=== PATIENT | female | born 1995 | race Caucasian/White ===

== ENCOUNTER 2022-02-13 10:57 | Emergency (ER) | payer OTHER ==
[2022-02-13 11:04] VITALS: BP 180/90
--- NOTE | 2022-02-13 11:54 | ED Physician Documentation ---
History of Present Illness - Stated complaint Stated Complaint: STITCH REMOVAL - Chief complaint Chief Complaint: Laceration - Additonal information Additional information: 26-year-old female presents emergency department to have the 4 sutures taken out of her left thumb. Wound occurred 14 days ago after using a juke box mechanic. Review of Systems Constitutional: reports: Reviewed and negative Cardiac: reports: Reviewed and negative Respiratory: reports: Reviewed and negative Skin: reports: Laceration (s) PD PAST MEDICAL HISTORY - Past Surgical History Past Surgical History: No - Present Medications Home Medications: Ambulatory Orders Medication Instructions Recorded Confirmed No Known Home Medications 01/30/22 02/13/22 - Allergies Allergies/Adverse Reactions: Allergies Allergy/AdvReac Type Severity Reaction Status Date / Time No Known Drug Allergies Allergy Verified 01/30/22 19:10 - Social History Does the pt have substance abuse?: No - Immunizations Immunizations are current?: No Immunizations: TDAP >10years/unknown PD ED PE EXPANDED - Extremities Extremities: Left finger(s) ([address] on the dorsum of the left thumb just distal to the MCP joint. Wound is well approximated. No drainage. No tenderness elicited. Normal flexion extension at MCP. Mild surrounding erythema.) Results - Vitals Vitals: Vital Signs - 24 hr 02/13/22 11:02 Temperature 37.1 C Heart Rate 78 Respiratory 17 Rate Blood Pressure 180/90 H O2 Saturation 99 Oxygen O2 Source Room air PD MEDICAL DECISION MAKING - ED course Complexity details: d/w patient ED course: 26-year-old female presents emergency department to have 4 sutures taken out of the dorsum of her left thumb sustained after cutting her self with a juke box mechanic 14 days ago. The wound itself appears well-healed with good wound approximation no pain and no drainage. There is moderate amount of erythema surrounding the wound which I believe at this time to be inflammation secondary to suture as opposed to infection. Sutures were removed. There did not appear to be any dehiscence. Routine care and emergent return precautions otherwise discussed Departure - Departure Disposition: 01 Home, Self Care Clinical Impression: Visit for suture removal Condition: Stable Record reviewed to determine appropriate education?: Yes Comments: Deborah the 4 sutures were taken out of the laceration of your left thumb. The wound appears to have healed well. The redness I suspect is inflammation just because the stitches act like a foreign body. I recommend you place a thin layer of any antibiotic ointment such as Neosporin over the wound as well as a bandage. Over the next week or so I would expect the redness to be improving. If not improving, you have fevers milky drainage or any concerns of infection then please return immediately to the ER for second look.
== END 2022-02-13 11:55 | disposition home or self-care (01) ==
LOC: ED 10:57
DX: S61.012D Laceration without foreign body of left thumb without damage to nail, subsequent encounter (principal); X58.XXXD Exposure to other specified factors, subsequent encounter
CPT/HCPCS: 99281

== ENCOUNTER 2023-12-20 08:56 | Inpatient (IN) | payer SELFPAY ==
--- NOTE | 2023-12-20 10:22 | ED Physician Documentation ---
PD HPI NVD - Stated complaint Stated Complaint: DEHYDRATION,FATIGUE - Chief complaint Chief Complaint: General - History obtained from History obtained from: Patient - History of Present Illness Timing - onset: How many weeks ago (2) Timing - duration: Weeks (2) Timing - details: Abrupt onset, Still present (she had viral URI type symptoms about 2 1/2 weeks ago for severald days. The main illness felt improved but continues with malaise, less appetite. Able to take PO fluids, not much food. Still urinating. Not much stool; feels constipated.) Associated symptoms: Near syncope / syncope, Loss of appetite. No: Fever Contributing factors: No: Bad food, Travel, Diabetes Similar symptoms before: Has not had sx before Recently seen: Clinic (walk in clinic and had blood sugar noted to be about 250. Refered to ER for concern of new onset diabetes or other process. Their feeling was seemed urgent enough to get labs and eval more timely.) Review of Systems Constitutional: reports: Myalgias, Fatigue Neurologic: reports: Generalized weakness, Confused, Headache. denies: Focal weakness, Numbness, Head injury PD PAST MEDICAL HISTORY - Past Medical History Past Medical History: No Cardiovascular: None Respiratory: None Neuro: None Endocrine/Autoimmune: None - Past Surgical History Past Surgical History: No - Present Medications Home Medications: Ambulatory Orders Medication Instructions Recorded Confirmed No Known Home Medications 01/30/22 12/20/23 - Allergies Allergies/Adverse Reactions: Allergies Allergy/AdvReac Type Severity Reaction Status Date / Time No Known Drug Allergies Allergy Verified 12/20/23 09:07 - Social History Does the pt smoke?: No Smoking Status: Never smoker Does the pt have substance abuse?: No Substance Use and Type: Marijuana - Immunizations Immunizations are current?: No Immunizations: TDAP >10years/unknown PD ED PE NORMAL - Vitals Vital signs reviewed: Yes - General General: Alert and oriented X 3, No acute distress, Well developed/nourished - HEENT HEENT: Moist mucous membranes, Pharynx benign - Neck Neck: Supple, no meningeal sign, No adenopathy - Cardiac Cardiac: RRR, No murmur - Respiratory Respiratory: Clear bilaterally - Abdomen Abdomen: Soft, Non tender, Non distended - Derm Derm: Normal color, Warm and dry - Neuro Neuro: Alert and oriented X 3, No motor deficit, No sensory deficit, Normal speech Eye Opening: Spontaneous Motor: Obeys Commands Verbal: Oriented GCS Score: 15 Results - Vitals Vitals: Vital Signs - 24 hr 12/20/23 12/20/23 12/20/23 09:04 11:57 12:41 Temperature 36.3 C L Heart Rate 99 82 90 Respiratory 16 10 L 14 Rate Blood Pressure 144/84 H 166/91 H O2 Saturation 99 99 97 12/20/23 12/20/23 13:30 14:00 Temperature Heart Rate 84 83 Respiratory 14 13 Rate Blood Pressure 147/56 H 144/86 H O2 Saturation 96 95 Oxygen O2 Source Room air - Labs Labs: Laboratory Tests 12/20/23 12/20/23 12/20/23 11:20 11:20 11:20 WBC 13.6 H RBC 5.12 Hgb 15.0 Hct 42.8 MCV 83.6 MCH 29.3 MCHC 35.0 RDW 10.6 L Plt Count 207 MPV 12.2 H Neut # (Auto) 10.0 H Lymph # (Auto) 1.8 [place] # (Auto) 1.5 H Eos # (Auto) 0.2 Baso # (Auto) 0.0 Absolute Nucleated RBC 0.00 Band Neuts % (Manual) Not Reportable Abnorm Lymph % (Manual) Not Reportable Nucleated RBC % 0.0 Neutrophils # (Manual) Not Reportable Lymphocytes # (Manual) Not Reportable Monocytes # (Manual) Not Reportable Eosinophils # (Manual) Not Reportable Basophils # (Manual) Not Reportable Differential Comment MANUAL=AUTO DIFF WBC Morphology NORMAL APPEARANCE Platelet Estimate NORMAL (130-450,000) Platelet Morphology NORMAL APPEARANCE RBC Morph Micro Appear 1+ STOMATOCYTES VBG pH 7.583 H VBG pCO2 46.9 VBG pO2 30.6 VBG HCO3 43.3 H VBG Total CO2 44.7 H VBG O2 Saturation 70.1 VBG Base Excess 18.6 H Sodium 118 L* Potassium 2.2 L* Chloride 60 L* Carbon Dioxide > 45 H* Anion Gap TNP BUN 16 Creatinine 0.9 Estimated GFR (MDRD) 74 L Glucose 145 H POC Whole Bld Glucose Estimat Average Glucose Hemoglobin A1c % Calcium 9.5 Phosphorus Magnesium 2.2 Total Bilirubin 1.3 H AST 22 ALT 27 Alkaline Phosphatase 66 Total Protein 7.4 Albumin 4.6 Globulin 2.8 Albumin/Globulin Ratio 1.6 Lipase 28 TSH 2.79 Urine Color Urine Clarity Urine pH Ur Specific [place] Urine Protein Urine Glucose (UA) Urine Ketones Urine Occult Blood Urine Nitrite Urine Bilirubin Urine Urobilinogen Ur Leukocyte Esterase Ur Microscopic Review Urine Culture Comments Serum Ketones NEGATIVE 12/20/23 12/20/23 12/20/23 11:20 11:20 11:29 WBC RBC Hgb Hct MCV MCH MCHC RDW Plt Count MPV Neut # (Auto) Lymph # (Auto) [place] # (Auto) Eos # (Auto) Baso # (Auto) Absolute Nucleated RBC Band Neuts % (Manual) Abnorm Lymph % (Manual) Nucleated RBC % Neutrophils # (Manual) Lymphocytes # (Manual) Monocytes # (Manual) Eosinophils # (Manual) Basophils # (Manual) Differential Comment WBC Morphology Platelet Estimate Platelet Morphology RBC Morph Micro Appear VBG pH VBG pCO2 VBG pO2 VBG HCO3 VBG Total CO2 VBG O2 Saturation VBG Base Excess Sodium Potassium Chloride Carbon Dioxide Anion Gap BUN Creatinine Estimated GFR (MDRD) Glucose POC Whole Bld Glucose 154 H Estimat Average Glucose 114 H Hemoglobin A1c % 5.6 Calcium Phosphorus 1.9 L Magnesium Total Bilirubin AST ALT Alkaline Phosphatase Total Protein Albumin Globulin Albumin/Globulin Ratio Lipase TSH Urine Color Urine Clarity Urine pH Ur Specific [place] Urine Protein Urine Glucose (UA) Urine Ketones Urine Occult Blood Urine Nitrite Urine Bilirubin Urine Urobilinogen Ur Leukocyte Esterase Ur Microscopic Review Urine Culture Comments Serum Ketones 12/20/23 13:30 WBC RBC Hgb Hct MCV MCH MCHC RDW Plt Count MPV Neut # (Auto) Lymph # (Auto) [place] # (Auto) Eos # (Auto) Baso # (Auto) Absolute Nucleated RBC Band Neuts % (Manual) Abnorm Lymph % (Manual) Nucleated RBC % Neutrophils # (Manual) Lymphocytes # (Manual) Monocytes # (Manual) Eosinophils # (Manual) Basophils # (Manual) Differential Comment WBC Morphology Platelet Estimate Platelet Morphology RBC Morph Micro Appear VBG pH VBG pCO2 VBG pO2 VBG HCO3 VBG Total CO2 VBG O2 Saturation VBG Base Excess Sodium Potassium Chloride Carbon Dioxide Anion Gap BUN Creatinine Estimated GFR (MDRD) Glucose POC Whole Bld Glucose Estimat Average Glucose Hemoglobin A1c % Calcium Phosphorus Magnesium Total Bilirubin AST ALT Alkaline Phosphatase Total Protein Albumin Globulin Albumin/Globulin Ratio Lipase TSH Urine Color YELLOW Urine Clarity CLEAR Urine pH 7.5 Ur Specific [place] 1.010 Urine Protein NEGATIVE Urine Glucose (UA) NEGATIVE Urine Ketones NEGATIVE Urine Occult Blood NEGATIVE Urine Nitrite NEGATIVE Urine Bilirubin NEGATIVE Urine Urobilinogen 4 H Ur Leukocyte Esterase NEGATIVE Ur Microscopic Review NOT INDICATED Urine Culture Comments NOT INDICATED Serum Ketones PD Medical Decision Making - ED course Complexity details: reviewed results, considered differential (blood sugar some elevted at Walk In. blood sugar here not too hihg. Sodium very low at 118. No eds to induce hyponatremia. Had less intake due to nausea. Has had fluids. Could it be dilutional low sodium from water intake? ), d/w patient Departure - Departure Disposition: 66 [facility] DC/Xfer Clinical Impression: Light-headed feeling, Generalized weakness, Hyponatremia, Hypokalemia, Acute urinary retention Condition: Stable Record reviewed to determine appropriate education?: Yes Discharge Date/Time: 12/20/23 14:50
[2023-12-20 11:25] LABS: BASOPHILS % (AUTO) 0.1 %; EOSINOPHILS # (AUTO) 0.2 10^3/uL (0.0-0.7); EOSINOPHILS % (AUTO) 1.8 %; HCT - HEMATOCRIT 42.8 % (37.0-47.0); LYMPHOCYTES # (AUTO) 1.8 10^3/uL (1.5-3.5); LYMPHOCYTES % (AUTO) 13.1 %; MEAN CORPUSCULAR HEMOGLOBIN 29.3 pg (27.0-31.0); MEAN CORPUSCULAR VOLUME 83.6 fL (81.0-99.0); MEAN PLATELET VOLUME 12.2 fL (7.9-10.8); MONOCYTES # (AUTO) 1.5 10^3/uL (0.0-1.0); MONOCYTES % (AUTO) 10.8 %; NEUTROPHILS % (AUTO) 73.7 %; PLT - PLATELET COUNT 207 10^3/uL (130-450); RED BLOOD COUNT 5.12 10^6/uL (4.20-5.40); RED CELL DISTRIBUTION WIDTH 10.6 % (12.0-15.0); WHITE BLOOD COUNT 13.6 x10^3/uL (4.8-10.8)
[2023-12-20] MEDS: SODIUM CHLORIDE 0.9% 1,000 ML IV STA (11:26)
[2023-12-20 11:33] LABS: KETONES, SERUM (ACETEST) NEGATIVE (NEGATIVE)
[2023-12-20 11:34] LABS: VBG HCO3 43.3 mmol/L (23-28); VBG PCO2 46.9 mmHg (41-51); VBG PH 7.583 (7.31-7.41); VBG PO2 30.6 mmHg (25-47)
[2023-12-20 11:35] LABS: VBG BASE EXCESS 18.6 mmol/L (-2 - +2); VBG OXYGEN SATURATION 70.1 % (60-80); VBG TOTAL CO2 44.7 mmol/L (24-29)
[2023-12-20 11:39] LABS: MAGNESIUM 2.2 mg/dL (1.7-2.3)
[2023-12-20 11:45] LABS: LIPASE 28 U/L (11-82)
[2023-12-20 11:49] LABS: PLATELET ESTIMATE, MANUAL NORMAL (130-450,000) (NORMAL); PLATELET MORPHOLOGY NORMAL APPEARANCE (NORMAL); RBC MORPHOLOGY (MULTIPLE) 1+ STOMATOCYTES (NORMAL); WBC MORPHOLOGY (MULTIPLE) NORMAL APPEARANCE (NORMAL)
[2023-12-20 11:53] LABS: ALBUMIN 4.6 g/dL (3.2-5.5); ALBUMIN/GLOBULIN RATIO 1.6 (1.0-2.2); ALKALINE PHOSPHATASE 66 IU/L (42-121); ALT ALANINE AMINOTRANSFERASE 27 IU/L (10-60); AST ASPARTATE AMINOTRANSFERASE 22 IU/L (10-42); BILIRUBIN,TOTAL 1.3 mg/dL (0.2-1.0); BUN - BLOOD UREA NITROGEN 16 mg/dL (6-20); CALCIUM 9.5 mg/dL (8.5-10.3); CARBON DIOXIDE - CO2 > 45 mmol/L (21-32); CHLORIDE 60 mmol/L (101-111); CREATININE 0.9 mg/dL (0.6-1.3); GFR - MDRD 74 (>89); GLUCOSE 145 mg/dL (74-104); POTASSIUM 2.2 mmol/L (3.5-4.5); SODIUM 118 mmol/L (135-145); TOTAL PROTEIN 7.4 g/dL (6.4-8.9)
[2023-12-20 11:56] LABS: THYROID STIMULATING HORMONE 2.79 uIU/mL (0.34-5.60)
[2023-12-20 12:02] LABS: DIFFERENTIAL COMMENT MANUAL=AUTO DIFF
[2023-12-20 12:31] LABS: ESTIMATED AVERAGE GLUCOSE 114 mg/dL (70-100); HEMOGLOBIN A1c% 5.6 % (4.27-6.07)
[2023-12-20] MEDS: LACTATED RINGERS 1,000 ML IV STA (12:46)
[2023-12-20] MEDS: POTASSIUM CHLOR 10 MEQ/100 ML 10 MEQ/100 ML BAG IV SCH (12:46)
[2023-12-20] MEDS ORDERED: iohexoL-300 100 ML VIAL ONE (13:00)
[2023-12-20] MEDS: iohexoL-300 100 ML VIAL IVP ONE (13:11)
[2023-12-20 13:39] LABS: BILIRUBIN,URINE NEGATIVE (NEGATIVE); GLUCOSE, URINE (UA) NEGATIVE (NEGATIVE); KETONES,URINE (UA) NEGATIVE (NEGATIVE); LEUKOCYTE ESTERASE, URINE NEGATIVE (NEGATIVE); NITRITE,URINE NEGATIVE (NEGATIVE); OCCULT BLOOD,URINE NEGATIVE (NEGATIVE); PH,URINE 7.5 PH (5.0-7.5); PROTEIN,URINE NEGATIVE (NEGATIVE); UROBILINOGEN,URINE 4 E.U./dL (NORMAL)
--- NOTE | 2023-12-20 13:40 | CT Report ---
PROCEDURE: Abdomen/Pelvis W INDICATIONS: nausea 2-3 weeks CONTRAST: 100ml omni 300 TECHNIQUE: After the administration of intravenous contrast, a CT scan of the abdomen and pelvis was performed. Images were recorded and evaluated at appropriate window settings. Reformats: coronal and sagittal. F or radiation dose reduction, the following was used: automated exposure control, adjustment of mA and /or kV according to patient size. COMPARISON: None. FINDINGS: Image quality: Diagnostic. Lower chest: Unremarkable. Liver: No solid mass. 2.2 cm focal hypodensity in the anterior aspect of the medial segment of the le ft hepatic lobe adjacent to the falciform ligament. This is likely focal fatty infiltration. Gallbladder: No radiopaque stones or wall thickening. Biliary tree: No intrahepatic or extrahepatic dilation, accounting for age. Spleen: No splenomegaly. Pancreas: No pancreatic ductal dilation. Adrenals: No adrenal nodule. Kidneys and ureters: No hydronephrosis. No renal cystic lesion which requires follow up. No solid mas s. There is minimal prominence of the bilateral ureters and renal pelvis without associated wall thic kening, stranding, or radiodense stone. No mass or adenopathy along the course of the bilateral urete rs. This is likely incidental/physiologic. Stomach, bowel and peritoneum: No gastric or small bowel dilation. No abnormal wall thickening. No pa thologic free fluid. Appendix is not visualized but no secondary findings for acute appendicitis. Lymph nodes: No central or retroperitoneal adenopathy. Vessels: No infrarenal aortic aneurysm. Patent portal vein. PELVIS Reproductive organs: Unremarkable. Bladder: Urinary bladder distention. No wall thickening or perivesicular stranding. Pelvic lymph nodes: No pelvic adenopathy by size criteria. Bones: No aggressive osseous abnormality. Other: No significant ventral or inguinal hernia. IMPRESSION: CT abdomen and pelvis without acute abnormalities point patient's symptoms. A 2.2 cm focus of relative hypoattenuation involving the anterior margin of the medial segment of the left hepatic lobe, adjacent to the falciform ligament. This is likely related to fatty dictation. Minimal prominence of the bilateral ureters and renal pelvis without associated inflammatory changes or obstructing stones. No masses or adenopathy seen distally. This is likely physiologic in etiology. Reviewed by: Alvino Acharya MD on 12/20/2023 1:38 PM PDT Approved by: Alvino Acharya MD on 12/20/2023 1:38 PM PDT Station ID: [id number]
[2023-12-20 13:45] LABS: CLARITY,URINE CLEAR (CLEAR)
[2023-12-20] MEDS ORDERED: ONDANSETRON ODT 4 MG TABLET TL PRN (14:21)
[2023-12-20] MEDS ORDERED: ACETAMINOPHEN 325 MG TABLET PO PRN (14:21)
[2023-12-20] MEDS ORDERED: SODIUM CHLORIDE FLUSH 0.9% 10 ML SYRINGE IVP PRN (14:21)
[2023-12-20] MEDS ORDERED: ONDANSETRON 4 MG/2 ML VIAL IVP PRN (14:21)
--- NOTE | 2023-12-20 14:35 | HISTORY & PHYSICAL EXAMINATION ---
Chief Complaint - Chief Complaint Chief Complaint: Nausea and vomiting History of Present Illness - Admitted From Admitted From:: ED - History Obtained From Records Reviewed: Yes History obtained from: Patient Exam Limitations: No - History of Present Illness HPI Comment/Other: Patient is a 28-year-old female with no known past medical history who presented to the ED due to several days of nausea and vomiting. Upon presentation to the ED she was noted to have severe electrolyte derangements including a sodium of 118, potassium 2.2, chloride 60, and HCO3 greater than 45. She was given IV fluids. A CT abdomen/pelvis was performed which was unremarkable. Patient was admitted to the ICU for electrolyte replacement. During my evaluation, she denied any acute symptoms. She did have some urinary retention and a Kim catheter was placed. She states that after receiving fluids she felt significantly better. History - Past Medical History MRSA Hx?: No - Family & Social History Living Situation: With family Meds/Allgy - Home Medications Home Medications: Ambulatory Orders Medication Instructions Recorded Confirmed No Known Home Medications 01/30/22 12/20/23 - Allergies Allergies/Adverse Reactions: Allergies Allergy/AdvReac Type Severity Reaction Status Date / Time No Known Drug Allergies Allergy Verified 12/20/23 09:07 Review of Systems - Constitutional Constitutional: denies: Fatigue, Fever, Chills - Cardiovascular Cariovascular: denies: Palpitations, Chest pain - Gastrointestinal Gastrointestinal: denies: Abdominal pain, Abdominal distention - All Other Systems All Other Systems: reports: Reviewed and negative Exam - Vital Signs Reviewed Vital Signs: Yes Vital Signs: Vital Signs x48h Temp Pulse Resp BP Pulse Ox 12/20/23 14:00 83 13 144/86 H 95 12/20/23 13:30 84 14 147/56 H 96 12/20/23 12:41 90 14 97 12/20/23 11:57 82 10 L 166/91 H 99 12/20/23 09:04 36.3 C L 99 16 144/84 H 99 - Physical Exam General Appearance: positive: No acute distress, Alert Respiratory: positive: Chest non-tender, No respiratory distress, Breath sounds nml Cardiovascular: positive: Regular rate & rhythm, No murmur, No gallop Abdomen: positive: Non-tender, No organomegaly, Nml bowel sounds Conclusion/Plan - Problem List (1) Nausea & vomiting Conclusion/Plan: --Patient reports that she ate some bad food several days ago and was vomiting 5 times daily. -- Antiemetics available. Her vomiting has subsided. However this has led to electrolyte related treatments. (2) Hypokalemia Conclusion/Plan: --Potassium replacement via ICU protocol. Likely due to vomiting. (3) Hyponatremia Conclusion/Plan: --There is old hyponatremia and metabolic alkalosis due to vomiting. Replacing with IV fluids. (4) Acute urinary retention Conclusion/Plan: --Exact etiology of urinary retention is unknown. Kim catheter has been placed. She is producing urine. - Lab Results Fish Bones: 12/20/23 11:20 12/20/23 11:20 - Diagnostic Imaging Results Diagnostic Imaging Results: positive: Final report reviewed
[2023-12-20] MEDS: LACTATED RINGERS 1,000 ML IV SCH (15:07)
[2023-12-20] MEDS: SODIUM CHLORIDE FLUSH 0.9% 10 ML SYRINGE IVP SCH (15:16)
[2023-12-20] MEDS: NEUTRA-PHOS 250 MG TABLET PO SCH ×2 (16:04→22:51)
[2023-12-20 21:07] LABS: CALCIUM 8.8 mg/dL (8.5-10.3); PHOSPHORUS 1.9 mg/dL (2.5-5.0)
[2023-12-20 21:13] LABS: POTASSIUM 2.1 mmol/L (3.5-4.5)
[2023-12-21 04:47] LABS: CALCIUM, IONIZED 0.99 mmol/L (1.15-1.33); VBG PH 7.57 (7.31-7.41)
[2023-12-21 04:48] LABS: BASOPHILS % (AUTO) 0.2 %; EOSINOPHILS % (AUTO) 0.4 %; HCT - HEMATOCRIT 35.3 % (37.0-47.0); HGB - HEMOGLOBIN 12.2 g/dL (12.0-16.0); LYMPHOCYTES # (AUTO) 2.8 10^3/uL (1.5-3.5); LYMPHOCYTES % (AUTO) 26.8 %; MEAN CORPUSCULAR HEMOGLOBIN 29.9 pg (27.0-31.0); MEAN CORPUSCULAR HGB CONC 34.6 g/dL (32.0-36.0); MEAN CORPUSCULAR VOLUME 86.5 fL (81.0-99.0); MONOCYTES # (AUTO) 1.1 10^3/uL (0.0-1.0); MONOCYTES % (AUTO) 10.1 %; NEUTROPHILS # (AUTO) 6.5 10^3/uL (1.5-6.6); NEUTROPHILS % (AUTO) 62.1 %; PLT - PLATELET COUNT 186 10^3/uL (130-450); RED BLOOD COUNT 4.08 10^6/uL (4.20-5.40); WHITE BLOOD COUNT 10.4 x10^3/uL (4.8-10.8)
[2023-12-21 05:06] LABS: PHOSPHORUS 3.1 mg/dL (2.5-5.0)
[2023-12-21 05:10] LABS: BUN - BLOOD UREA NITROGEN 10 mg/dL (6-20); CALCIUM 8.8 mg/dL (8.5-10.3); CARBON DIOXIDE - CO2 > 45 mmol/L (21-32); CHLORIDE 76 mmol/L (101-111); CREATININE 0.7 mg/dL (0.6-1.3); GFR - MDRD 98 (>89); GLUCOSE 100 mg/dL (74-104); POTASSIUM 1.9 mmol/L (3.5-4.5); SODIUM 129 mmol/L (135-145)
[2023-12-21] MEDS ORDERED: CALCIUM GLUCONATE IN NS 0.9% 2,000 MG/100 ML BAG IV ONE (06:02)
[2023-12-21] MEDS ORDERED: POTASSIUM CHLOR 10 MEQ/100 ML 10 MEQ/100 ML BAG IV ONE ×2 (06:03)
[2023-12-21] MEDS: CALCIUM GLUCONATE IN NS 0.9% 2,000 MG/100 ML BAG IV ONE (06:06)
[2023-12-21] MEDS: POTASSIUM CHLOR 10 MEQ/100 ML 10 MEQ/100 ML BAG IV SCH ×3 (06:12→18:02)
[2023-12-21] MEDS: ENOXAPARIN 40 MG/0.4 ML SYRINGE SUBQ SCH (09:01)
[2023-12-21] MEDS: polyethylene glycoL 3350 17 GM PACKET PO SCH (09:02)
--- NOTE | 2023-12-21 10:35 | PROVIDER PROGRESS NOTE ---
Assessment/Plan - Problem List (1) Nausea & vomiting Assessment/Plan: (1) Nausea & vomiting Conclusion/Plan: --Patient reports that she ate some bad food several days ago and was vomiting 5 times daily. -- Antiemetics available. Her vomiting has subsided. However this has led to electrolyte related treatments. (2) Hypokalemia Conclusion/Plan: --Potassium replacement via ICU protocol. Likely due to vomiting. Continued IV and PO potassium replacement. (3) Hyponatremia Conclusion/Plan: --Improving with IV fluids. (4) Acute urinary retention Conclusion/Plan: --Will attempt to perform voiding trial today. Dispo: ICU. Continued cardiac monitoring for severely low potassium. - Current Meds Current Meds: Current Medications Generic Name Dose Route Start Last Admin Trade Name Freq PRN Reason Stop Dose Admin Enoxaparin Sodium 40 mg 12/21/23 09:00 12/21/23 09:01 Enoxaparin 40 Mg/0.4 Ml Syringe SUBQ 40 mg DAILY DIANA Administration Lactated Ringer's 1,000 mls @ 100 mls/hr 12/20/23 15:00 12/20/23 22:48 Lr IV 100 mls/hr .Q10H DIANA Administration Potassium Chloride 10 meq in 100 mls @ 100 mls/hr 12/21/23 09:00 12/21/23 09:01 Potassium Chloride IV 12/21/23 14:59 100 mls/hr Q1H DIANA Administration Protocol Polyethylene Glycol 17 gm 12/21/23 09:00 12/21/23 09:02 Polyethylene Glycol 3350 17 Gm Packet PO Not Given DAILY DIANA Sodium Chloride 10 ml 12/20/23 17:00 12/21/23 09:02 Sodium Chloride Flush 0.9% 10 Ml Syringe IVP Not Given 0100,0900,1700 DIANA - Lab Result Fish Bone Diagrams: 12/21/23 04:10 12/21/23 04:10 - Additional Planning My Orders: My Active Orders 12/20/23 14:21 Activity Orders (ICU) [RC] Q2HR Daily Weight [RC] 0600 IO [RC] Q1HR Initiate Bowel Care Protocol [RC] QSHIFT Initiate ICU Electrolyte Prot. [RC] .protocol Initiate Line Care Protocol [RC] .protocol Initiate Personal Care Protoco [RC] .protocol Initiate Progressive Mobility Protocol [RC] 08 Acetaminophen [Tylenol] 650 mg PO Q4HR PRN Ondansetron Inj [Zofran Inj] 4 mg IVP Q6HR PRN Ondansetron Odt [Zofran Odt] 4 mg TL Q6HR PRN Sodium Chloride Flush 0.9% [Normal Saline Flush 0.9%] 10 ml IVP PRN PRN Code Status [OTHERS] Routine Condition of Patient [OTHERS] Routine DVT Prophylaxis [OTHERS] Routine 12/20/23 14:23 Vital Signs [RC] Q1HR 12/20/23 15:00 Lactated Ringers [Lr] 1,000 ml IV 100 mls/hr 12/20/23 Dinner Regular Diet [DIET] 12/20/23 17:00 Sodium Chloride Flush 0.9% [Normal Saline Flush 0.9%] 10 ml IVP 0100,0900,1700 12/21/23 09:00 Enoxaparin [Lovenox] 40 mg SUBQ DAILY Potassium Chlor 10 Meq/100 ml [Potassium Chloride] 10 meq in 100 ml IV Q1H polyethylene glycoL 3350 [Miralax] 17 gm PO DAILY 12/21/23 10:30 CALCIUM, IONIZED ([facility]) [BG] Timed 12/21/23 21:00 Potassium Chloride [K-Dur] 40 meq PO BID 12/22/23 05:00 BMP - BASIC METABOLIC PANEL [CHEM] DAILYLAB CALCIUM, IONIZED ([facility]) [BG] DAILYLAB CBC [CBC - COMP BLD CT W/AUTO DIFF] [HEME] DAILYLAB MAGNESIUM [CHEM] DAILYLAB PHOSPHORUS [CHEM] DAILYLAB 12/23/23 05:00 BMP - BASIC METABOLIC PANEL [CHEM] DAILYLAB CBC [CBC - COMP BLD CT W/AUTO DIFF] [HEME] DAILYLAB 12/24/23 05:00 BMP - BASIC METABOLIC PANEL [CHEM] DAILYLAB CBC [CBC - COMP BLD CT W/AUTO DIFF] [HEME] DAILYLAB 12/25/23 05:00 BMP - BASIC METABOLIC PANEL [CHEM] DAILYLAB CBC [CBC - COMP BLD CT W/AUTO DIFF] [HEME] DAILYLAB Subjective - Subjective Patient Reports: Feeling Better, Resting Comfortably, No Complaints Objective Vital Signs: Vital Signs - 24 hr 12/20/23 12/20/23 12/20/23 11:57 12:41 13:30 Temperature Heart Rate 82 90 84 Heart Rate [ Monitoring electrodes] Respiratory 10 L 14 14 Rate Blood Pressure 166/91 H 147/56 H Blood Pressure [Left Brachial artery] O2 Saturation 99 97 96 12/20/23 12/20/23 12/20/23 14:00 17:00 18:00 Temperature Heart Rate 83 Heart Rate [ 96 84 Monitoring electrodes] Respiratory 13 12 19 Rate Blood Pressure 144/86 H Blood Pressure 141/68 H 142/65 H [Left Brachial artery] O2 Saturation 95 95 95 12/20/23 12/20/23 12/20/23 19:00 20:00 21:00 Temperature 36.9 C Heart Rate Heart Rate [ 88 83 84 Monitoring electrodes] Respiratory 19 12 14 Rate Blood Pressure Blood Pressure 126/63 143/77 H 123/67 [Left Brachial artery] O2 Saturation 94 94 95 12/20/23 12/20/23 12/20/23 22:00 23:00 23:59 Temperature 36.9 C Heart Rate Heart Rate [ 86 77 79 Monitoring electrodes] Respiratory 12 16 17 Rate Blood Pressure Blood Pressure 134/61 H 120/76 123/65 [Left Brachial artery] O2 Saturation 94 97 95 12/21/23 12/21/23 12/21/23 01:00 02:00 03:00 Temperature Heart Rate Heart Rate [ 73 79 74 Monitoring electrodes] Respiratory 17 15 17 Rate Blood Pressure Blood Pressure 122/61 135/83 H 111/58 L [Left Brachial artery] O2 Saturation 94 94 92 12/21/23 12/21/23 12/21/23 04:00 05:00 06:00 Temperature 36.5 C Heart Rate Heart Rate [ 82 82 76 Monitoring electrodes] Respiratory 14 13 15 Rate Blood Pressure Blood Pressure 135/81 H 146/73 H 138/81 H [Left Brachial artery] O2 Saturation 93 92 94 12/21/23 12/21/23 12/21/23 07:00 08:00 09:46 Temperature 36.9 C Heart Rate Heart Rate [ 95 85 100 Monitoring electrodes] Respiratory 22 16 19 Rate Blood Pressure Blood Pressure 142/89 H 141/82 H 132/75 H [Left Brachial artery] O2 Saturation 97 96 96 12/21/23 10:00 Temperature Heart Rate Heart Rate [ 95 Monitoring electrodes] Respiratory 21 Rate Blood Pressure Blood Pressure 130/68 [Left Brachial artery] O2 Saturation 95 Oxygen O2 Source Room air I&O (Last 24 Hrs): Intake and Output Totals x24h 12/19/23 12/20/23 12/21/23 23:59 23:59 23:59 Intake Total 3446.333 2080 Output Total 1065 1757 Balance 2381.333 323 General: Alert, Oriented x3, Cooperative, No acute distress Cardiovascular: Regular rate, Normal S1, Normal S2, No murmurs Respiratory: Chest non-tender, No respiratory distress, Breath sounds nml Abdomen: Normal bowel sounds, Soft, No tenderness, No hepatospenomegaly, No masses - Results Results: Laboratory Results WBC 10.4 x10^3/uL (4.8-10.8) 12/21/23 04:10 RBC 4.08 10^6/uL (4.20-5.40) L 12/21/23 04:10 Hgb 12.2 g/dL (12.0-16.0) 12/21/23 04:10 Hct 35.3 % (37.0-47.0) L 12/21/23 04:10 MCV 86.5 fL (81.0-99.0) 12/21/23 04:10 MCH 29.9 pg (27.0-31.0) 12/21/23 04:10 MCHC 34.6 g/dL (32.0-36.0) 12/21/23 04:10 RDW 11.0 % (12.0-15.0) L 12/21/23 04:10 Plt Count 186 10^3/uL (130-450) 12/21/23 04:10 MPV 13.0 fL (7.9-10.8) H 12/21/23 04:10 Neut # (Auto) 6.5 10^3/uL (1.5-6.6) 12/21/23 04:10 Lymph # (Auto) 2.8 10^3/uL (1.5-3.5) 12/21/23 04:10 [place] # (Auto) 1.1 10^3/uL (0.0-1.0) H 12/21/23 04:10 Eos # (Auto) 0.0 10^3/uL (0.0-0.7) 12/21/23 04:10 Baso # (Auto) 0.0 10^3/uL (0.0-0.1) 12/21/23 04:10 Absolute Nucleated RBC 0.00 x10^3/uL 12/21/23 04:10 Band Neuts % (Manual) Not Reportable 12/20/23 11:20 Abnorm Lymph % (Manual) Not Reportable 12/20/23 11:20 Nucleated RBC % 0.0 /100WBC 12/21/23 04:10 Neutrophils # (Manual) Not Reportable 12/20/23 11:20 Lymphocytes # (Manual) Not Reportable 12/20/23 11:20 Monocytes # (Manual) Not Reportable 12/20/23 11:20 Eosinophils # (Manual) Not Reportable 12/20/23 11:20 Basophils # (Manual) Not Reportable 12/20/23 11:20 Differential Comment MANUAL=AUTO DIFF 12/20/23 11:20 WBC Morphology NORMAL APPEARANCE (NORMAL) 12/20/23 11:20 Platelet Estimate NORMAL (130-450,000) (NORMAL) 12/20/23 11:20 Platelet Morphology NORMAL APPEARANCE (NORMAL) 12/20/23 11:20 RBC Morph Micro Appear 1+ STOMATOCYTES (NORMAL) 12/20/23 11:20 VBG pH 7.570 (7.31-7.41) H 12/21/23 04:10 VBG pCO2 46.9 mmHg (41-51) 12/20/23 11:20 VBG pO2 30.6 mmHg (25-47) 12/20/23 11:20 VBG HCO3 43.3 mmol/L (23-28) H 12/20/23 11:20 VBG Total CO2 44.7 mmol/L (24-29) H 12/20/23 11:20 VBG O2 Saturation 70.1 % (60-80) 12/20/23 11:20 VBG Base Excess 18.6 mmol/L (-2 - +2) H 12/20/23 11:20 Ionized Calcium 0.99 mmol/L (1.15-1.33) L 12/21/23 04:10 Sodium 129 mmol/L (135-145) L 12/21/23 04:10 Potassium 1.9 mmol/L (3.5-4.5) L* 12/21/23 04:10 Chloride 76 mmol/L (101-111) L* 12/21/23 04:10 Carbon Dioxide > 45 mmol/L (21-32) H* 12/21/23 04:10 Anion Gap TNP 12/21/23 04:10 BUN 10 mg/dL (6-20) 12/21/23 04:10 Creatinine 0.7 mg/dL (0.6-1.3) 12/21/23 04:10 Estimated GFR (MDRD) 98 (>89) 12/21/23 04:10 Glucose 100 mg/dL (74-104) 12/21/23 04:10 POC Whole Bld Glucose 154 mg/dL (70 - 100) H 12/20/23 11:29 Estimat Average Glucose 114 mg/dL (70-100) H 12/20/23 11:20 Hemoglobin A1c % 5.6 % (4.27-6.07) 12/20/23 11:20 Calcium 8.8 mg/dL (8.5-10.3) 12/21/23 04:10 Phosphorus 3.1 mg/dL (2.5-5.0) 12/21/23 04:10 Magnesium 2.0 mg/dL (1.7-2.3) 12/21/23 04:10 Total Bilirubin 1.3 mg/dL (0.2-1.0) H 12/20/23 11:20 AST 22 IU/L (10-42) 12/20/23 11:20 ALT 27 IU/L (10-60) 12/20/23 11:20 Alkaline Phosphatase 66 IU/L (42-121) 12/20/23 11:20 Total Protein 7.4 g/dL (6.4-8.9) 12/20/23 11:20 Albumin 4.6 g/dL (3.2-5.5) 12/20/23 11:20 Globulin 2.8 g/dL (2.1-4.2) 12/20/23 11:20 Albumin/Globulin Ratio 1.6 (1.0-2.2) 12/20/23 11:20 Lipase 28 U/L (11-82) 12/20/23 11:20 TSH 2.79 uIU/mL (0.34-5.60) 12/20/23 11:20 Urine Color YELLOW 12/20/23 13:30 Urine Clarity CLEAR (CLEAR) 12/20/23 13:30 Urine pH 7.5 PH (5.0-7.5) 12/20/23 13:30 Ur Specific [place] 1.010 (1.002-1.030) 12/20/23 13:30 Urine Protein NEGATIVE mg/dL (NEGATIVE) 12/20/23 13:30 Urine Glucose (UA) NEGATIVE mg/dL (NEGATIVE) 12/20/23 13:30 Urine Ketones NEGATIVE mg/dL (NEGATIVE) 12/20/23 13:30 Urine Occult Blood NEGATIVE (NEGATIVE) 12/20/23 13:30 Urine Nitrite NEGATIVE (NEGATIVE) 12/20/23 13:30 Urine Bilirubin NEGATIVE (NEGATIVE) 12/20/23 13:30 Urine Urobilinogen 4 E.U./dL (NORMAL) H 12/20/23 13:30 Ur Leukocyte Esterase NEGATIVE (NEGATIVE) 12/20/23 13:30 Ur Microscopic Review NOT INDICATED 12/20/23 13:30 Urine Culture Comments NOT INDICATED 12/20/23 13:30 Nasal Screen MRSA (PCR) NEGATIVE (NEGATIVE) 12/20/23 14:54 Serum Ketones NEGATIVE (NEGATIVE) 12/20/23 11:20
[2023-12-21 11:09] LABS: CALCIUM, IONIZED 1.01 mmol/L (1.15-1.33); VBG PH 7.571 (7.31-7.41)
[2023-12-21] MEDS: CALCIUM GLUC 1,000MG/50ML-NACL 1,000 MG/50 ML BAG IV ONE ×3 (11:22→22:19)
--- NOTE | 2023-12-21 12:10 | PHARMACY PROGRESS NOTE ---
- Best Possible Medication History Admit Date and Time: 12/20/23 1421 Processed by: Nursing Medications reviewed in ED?: Yes Medication History completed: Yes Patient Interview: Completed Secondary Source(s): Insurance records As the person ultimately responsible for medication therapy, providers are able to order a medication from an existing home medication list in [facility] via the "Reconcile Routine" prior to Confirmation of that medication by operations support professionals. Such practice is discouraged except when the physician, in their clinical judgment, deems that a medical need exists for a medication without regard to previous use.
[2023-12-21] MEDS: NS W/40 MEQ KCL 1,000 ML IV SCH (13:17)
[2023-12-21 17:20] LABS: CALCIUM, IONIZED 1.09 mmol/L (1.15-1.33); VBG PH 7.548 (7.31-7.41)
[2023-12-21] MEDS: POTASSIUM CHLORIDE 20 MEQ TABLET PO SCH (20:51)
[2023-12-21 21:26] LABS: CALCIUM, IONIZED 1.09 mmol/L (1.15-1.33); VBG PH 7.501 (7.31-7.41)
[2023-12-22 02:32] LABS: CALCIUM, IONIZED 1.1 mmol/L (1.15-1.33); VBG PH 7.558 (7.31-7.41)
[2023-12-22] MEDS: CALCIUM GLUC 1,000MG/50ML-NACL 1,000 MG/50 ML BAG IV ONE (03:44)
[2023-12-22 04:44] LABS: BASOPHILS % (AUTO) 0.2 %; EOSINOPHILS % (AUTO) 0.3 %; HCT - HEMATOCRIT 32.6 % (37.0-47.0); HGB - HEMOGLOBIN 10.8 g/dL (12.0-16.0); LYMPHOCYTES # (AUTO) 2.4 10^3/uL (1.5-3.5); LYMPHOCYTES % (AUTO) 28.3 %; MEAN CORPUSCULAR HEMOGLOBIN 29.8 pg (27.0-31.0); MEAN CORPUSCULAR HGB CONC 33.1 g/dL (32.0-36.0); MEAN CORPUSCULAR VOLUME 90.1 fL (81.0-99.0); MEAN PLATELET VOLUME 12.7 fL (7.9-10.8); MONOCYTES # (AUTO) 0.7 10^3/uL (0.0-1.0); MONOCYTES % (AUTO) 8.6 %; NEUTROPHILS # (AUTO) 5.4 10^3/uL (1.5-6.6); NEUTROPHILS % (AUTO) 62.3 %; PLT - PLATELET COUNT 187 10^3/uL (130-450); RED BLOOD COUNT 3.62 10^6/uL (4.20-5.40); RED CELL DISTRIBUTION WIDTH 11.7 % (12.0-15.0); WHITE BLOOD COUNT 8.6 x10^3/uL (4.8-10.8)
[2023-12-22] MEDS: POTASSIUM CHLOR 10 MEQ/100 ML 10 MEQ/100 ML BAG IV SCH (04:54)
[2023-12-22 05:09] LABS: MAGNESIUM 1.6 mg/dL (1.7-2.3)
[2023-12-22 05:14] LABS: PHOSPHORUS 1.9 mg/dL (2.5-5.0)
[2023-12-22 05:19] LABS: CREATININE 0.7 mg/dL (0.6-1.3); POTASSIUM 3.3 mmol/L (3.5-4.5)
[2023-12-22 05:23] LABS: CALCIUM, IONIZED 1.13 mmol/L (1.15-1.33); VBG PH 7.499 (7.31-7.41)
[2023-12-22] MEDS: NEUTRA-PHOS 250 MG TABLET PO SCH ×2 (06:11→13:01)
[2023-12-22] MEDS: MAGNESIUM SULFATE 2 GRAM 2 GM/50 ML BAG IV ONE (08:50)
--- NOTE | 2023-12-22 09:09 | PROVIDER PROGRESS NOTE ---
Assessment/Plan - Problem List (1) Nausea & vomiting Assessment/Plan: (1) Nausea & vomiting Conclusion/Plan: --Resolved. (2) Hypokalemia Conclusion/Plan: --Potassium replacement via ICU protocol. Likely due to vomiting. Continued IV and PO potassium replacement. (3) Hyponatremia Conclusion/Plan: --Improving with IV fluids. (4) Acute urinary retention Conclusion/Plan: --Failed voiding trial on 12/20. Will attempt again tomorrow. Dispo: ICU. Anticipate DC in next 24-48 hours as her acid-base status normalizes. Continue lyte replacement via ICU protocol. - Current Meds Current Meds: Current Medications Generic Name Dose Route Start Last Admin Trade Name Freq PRN Reason Stop Dose Admin Enoxaparin Sodium 40 mg 12/21/23 09:00 12/22/23 08:58 Enoxaparin 40 Mg/0.4 Ml Syringe SUBQ 40 mg DAILY DIANA Administration Potassium Chloride/Sodium Chloride 1,000 mls @ 100 mls/hr 12/21/23 13:00 12/22/23 08:10 Normal Saline 0.9% W/40 Meq Kcl IV 100 mls/hr .Q10H DIANA Infusion Polyethylene Glycol 17 gm 12/21/23 09:00 12/21/23 09:02 Polyethylene Glycol 3350 17 Gm Packet PO Not Given DAILY DIANA Potassium Chloride 40 meq 12/21/23 21:00 12/22/23 08:46 Potassium Chloride 20 Meq Tablet PO 40 meq BID DIANA Administration Sodium Chloride 10 ml 12/20/23 17:00 12/22/23 09:01 Sodium Chloride Flush 0.9% 10 Ml Syringe IVP 10 ml 0100,0900,1700 DIANA Administration - Lab Result Fish Bone Diagrams: 12/22/23 04:10 12/22/23 04:10 - Additional Planning My Orders: My Active Orders 12/21/23 09:00 Enoxaparin [Lovenox] 40 mg SUBQ DAILY polyethylene glycoL 3350 [Miralax] 17 gm PO DAILY 12/21/23 13:00 Kim Insertion [RC] QSHIFT Ns W/40 Meq KCl [Normal Saline 0.9% W/40 Meq KCl] 1,000 ml IV 100 mls/hr 12/21/23 21:00 Potassium Chloride [K-Dur] 40 meq PO BID 12/23/23 05:00 BMP - BASIC METABOLIC PANEL [CHEM] DAILYLAB CBC [CBC - COMP BLD CT W/AUTO DIFF] [HEME] DAILYLAB PHOSPHORUS [CHEM] Timed 12/24/23 05:00 BMP - BASIC METABOLIC PANEL [CHEM] DAILYLAB CBC [CBC - COMP BLD CT W/AUTO DIFF] [HEME] DAILYLAB 12/25/23 05:00 BMP - BASIC METABOLIC PANEL [CHEM] DAILYLAB CBC [CBC - COMP BLD CT W/AUTO DIFF] [HEME] DAILYLAB Subjective - Subjective Patient Reports: Feeling Better, Resting Comfortably, No Complaints Objective Vital Signs: Vital Signs - 24 hr 12/21/23 12/21/23 12/21/23 09:46 10:00 11:00 Temperature Heart Rate [ 100 95 100 Monitoring electrodes] Respiratory 19 21 25 H Rate Blood Pressure 132/75 H 130/68 130/75 [Left Brachial artery] O2 Saturation 96 95 100 12/21/23 12/21/23 12/21/23 12:00 13:00 14:00 Temperature 36.3 C L Heart Rate [ 87 83 89 Monitoring electrodes] Respiratory 21 18 16 Rate Blood Pressure 129/69 139/79 H 128/67 [Left Brachial artery] O2 Saturation 98 97 96 12/21/23 12/21/23 12/21/23 15:00 16:00 17:00 Temperature 36.8 C Heart Rate [ 100 93 93 Monitoring electrodes] Respiratory 24 20 20 Rate Blood Pressure 126/75 127/66 119/63 [Left Brachial artery] O2 Saturation 94 97 95 12/21/23 12/21/23 12/21/23 18:00 19:00 20:00 Temperature Heart Rate [ 90 85 83 Monitoring electrodes] Respiratory 16 16 16 Rate Blood Pressure 109/57 L 110/56 L 107/61 [Left Brachial artery] O2 Saturation 95 96 96 12/21/23 12/21/23 12/21/23 21:00 22:00 23:00 Temperature 36.7 C Heart Rate [ 96 98 98 Monitoring electrodes] Respiratory 13 19 23 Rate Blood Pressure 133/98 H 142/82 H 110/60 [Left Brachial artery] O2 Saturation 100 99 96 12/22/23 12/22/23 12/22/23 00:00 01:00 02:00 Temperature 36.8 C Heart Rate [ 99 94 96 Monitoring electrodes] Respiratory 20 23 24 Rate Blood Pressure 127/73 120/62 129/73 [Left Brachial artery] O2 Saturation 96 97 96 12/22/23 12/22/23 12/22/23 03:00 04:00 05:00 Temperature 36.7 C Heart Rate [ 90 77 90 Monitoring electrodes] Respiratory 19 17 20 Rate Blood Pressure 122/64 123/76 124/75 [Left Brachial artery] O2 Saturation 95 96 96 12/22/23 12/22/23 12/22/23 06:00 07:00 08:00 Temperature 37.1 C Heart Rate [ 97 98 108 H Monitoring electrodes] Respiratory 15 24 15 Rate Blood Pressure 136/96 H 124/88 H 138/95 H [Left Brachial artery] O2 Saturation 98 97 97 12/22/23 09:00 Temperature Heart Rate [ 107 H Monitoring electrodes] Respiratory 28 H Rate Blood Pressure 142/85 H [Left Brachial artery] O2 Saturation 100 Oxygen O2 Source Room air I&O (Last 24 Hrs): Intake and Output Totals x24h 12/20/23 12/21/23 12/22/23 23:59 23:59 23:59 Intake Total 3446.333 5326 3133 Output Total 1065 4207 2415 Balance 2381.333 1119 718 General: Alert, Oriented x3, Cooperative, No acute distress Neuro: Alert, CN 2-12 Grossly Intact, Oriented Times 3 Cardiovascular: Regular rate, Normal S1, Normal S2, No murmurs Respiratory: Chest non-tender, No respiratory distress, Breath sounds nml Abdomen: Normal bowel sounds, Soft, No tenderness, No hepatospenomegaly, No masses - Results Results: Laboratory Results WBC 8.6 x10^3/uL (4.8-10.8) 12/22/23 04:10 RBC 3.62 10^6/uL (4.20-5.40) L 12/22/23 04:10 Hgb 10.8 g/dL (12.0-16.0) L 12/22/23 04:10 Hct 32.6 % (37.0-47.0) L 12/22/23 04:10 MCV 90.1 fL (81.0-99.0) 12/22/23 04:10 MCH 29.8 pg (27.0-31.0) 12/22/23 04:10 MCHC 33.1 g/dL (32.0-36.0) 12/22/23 04:10 RDW 11.7 % (12.0-15.0) L 12/22/23 04:10 Plt Count 187 10^3/uL (130-450) 12/22/23 04:10 MPV 12.7 fL (7.9-10.8) H 12/22/23 04:10 Neut # (Auto) 5.4 10^3/uL (1.5-6.6) 12/22/23 04:10 Lymph # (Auto) 2.4 10^3/uL (1.5-3.5) 12/22/23 04:10 [place] # (Auto) 0.7 10^3/uL (0.0-1.0) 12/22/23 04:10 Eos # (Auto) 0.0 10^3/uL (0.0-0.7) 12/22/23 04:10 Baso # (Auto) 0.0 10^3/uL (0.0-0.1) 12/22/23 04:10 Absolute Nucleated RBC 0.00 x10^3/uL 12/22/23 04:10 Band Neuts % (Manual) Not Reportable 12/20/23 11:20 Abnorm Lymph % (Manual) Not Reportable 12/20/23 11:20 Nucleated RBC % 0.0 /100WBC 12/22/23 04:10 Neutrophils # (Manual) Not Reportable 12/20/23 11:20 Lymphocytes # (Manual) Not Reportable 12/20/23 11:20 Monocytes # (Manual) Not Reportable 12/20/23 11:20 Eosinophils # (Manual) Not Reportable 12/20/23 11:20 Basophils # (Manual) Not Reportable 12/20/23 11:20 Differential Comment MANUAL=AUTO DIFF 12/20/23 11:20 WBC Morphology NORMAL APPEARANCE (NORMAL) 12/20/23 11:20 Platelet Estimate NORMAL (130-450,000) (NORMAL) 12/20/23 11:20 Platelet Morphology NORMAL APPEARANCE (NORMAL) 12/20/23 11:20 RBC Morph Micro Appear 1+ STOMATOCYTES (NORMAL) 12/20/23 11:20 VBG pH 7.499 (7.31-7.41) H 12/22/23 04:10 VBG pCO2 46.9 mmHg (41-51) 12/20/23 11:20 VBG pO2 30.6 mmHg (25-47) 12/20/23 11:20 VBG HCO3 43.3 mmol/L (23-28) H 12/20/23 11:20 VBG Total CO2 44.7 mmol/L (24-29) H 12/20/23 11:20 VBG O2 Saturation 70.1 % (60-80) 12/20/23 11:20 VBG Base Excess 18.6 mmol/L (-2 - +2) H 12/20/23 11:20 Ionized Calcium 1.13 mmol/L (1.15-1.33) L 12/22/23 04:10 Sodium 135 mmol/L (135-145) 12/22/23 04:10 Potassium 3.3 mmol/L (3.5-4.5) L 12/22/23 04:10 Chloride 93 mmol/L (101-111) L 12/22/23 04:10 Carbon Dioxide 39 mmol/L (21-32) H* 12/22/23 04:10 Anion Gap 3.0 (6-13) L 12/22/23 04:10 BUN 10 mg/dL (6-20) 12/22/23 04:10 Creatinine 0.7 mg/dL (0.6-1.3) 12/22/23 04:10 Estimated GFR (MDRD) 98 (>89) 12/22/23 04:10 Glucose 102 mg/dL (74-104) 12/22/23 04:10 POC Whole Bld Glucose 154 mg/dL (70 - 100) H 12/20/23 11:29 Estimat Average Glucose 114 mg/dL (70-100) H 12/20/23 11:20 Hemoglobin A1c % 5.6 % (4.27-6.07) 12/20/23 11:20 Calcium 9.0 mg/dL (8.5-10.3) 12/22/23 04:10 Phosphorus 1.9 mg/dL (2.5-5.0) L 12/22/23 04:10 Magnesium 1.6 mg/dL (1.7-2.3) L 12/22/23 04:10 Total Bilirubin 1.3 mg/dL (0.2-1.0) H 12/20/23 11:20 AST 22 IU/L (10-42) 12/20/23 11:20 ALT 27 IU/L (10-60) 12/20/23 11:20 Alkaline Phosphatase 66 IU/L (42-121) 12/20/23 11:20 Total Protein 7.4 g/dL (6.4-8.9) 12/20/23 11:20 Albumin 4.6 g/dL (3.2-5.5) 12/20/23 11:20 Globulin 2.8 g/dL (2.1-4.2) 12/20/23 11:20 Albumin/Globulin Ratio 1.6 (1.0-2.2) 12/20/23 11:20 Lipase 28 U/L (11-82) 12/20/23 11:20 TSH 2.79 uIU/mL (0.34-5.60) 12/20/23 11:20 Urine Color YELLOW 12/20/23 13:30 Urine Clarity CLEAR (CLEAR) 12/20/23 13:30 Urine pH 7.5 PH (5.0-7.5) 12/20/23 13:30 Ur Specific [place] 1.010 (1.002-1.030) 12/20/23 13:30 Urine Protein NEGATIVE mg/dL (NEGATIVE) 12/20/23 13:30 Urine Glucose (UA) NEGATIVE mg/dL (NEGATIVE) 12/20/23 13:30 Urine Ketones NEGATIVE mg/dL (NEGATIVE) 12/20/23 13:30 Urine Occult Blood NEGATIVE (NEGATIVE) 12/20/23 13:30 Urine Nitrite NEGATIVE (NEGATIVE) 12/20/23 13:30 Urine Bilirubin NEGATIVE (NEGATIVE) 12/20/23 13:30 Urine Urobilinogen 4 E.U./dL (NORMAL) H 12/20/23 13:30 Ur Leukocyte Esterase NEGATIVE (NEGATIVE) 12/20/23 13:30 Ur Microscopic Review NOT INDICATED 12/20/23 13:30 Urine Culture Comments NOT INDICATED 12/20/23 13:30 Nasal Screen MRSA (PCR) NEGATIVE (NEGATIVE) 12/20/23 14:54 Serum Ketones NEGATIVE (NEGATIVE) 12/20/23 11:20
[2023-12-22 12:10] LABS: MAGNESIUM 1.9 mg/dL (1.7-2.3); PHOSPHORUS 1.6 mg/dL (2.5-5.0)
[2023-12-22] MEDS: POTASSIUM CHLORIDE 20 MEQ TABLET PO ONE ×2 (13:01→17:43)
[2023-12-23 05:31] LABS: BASOPHILS % (AUTO) 0.4 %; EOSINOPHILS # (AUTO) 0.2 10^3/uL (0.0-0.7); EOSINOPHILS % (AUTO) 1.7 %; HCT - HEMATOCRIT 33.5 % (37.0-47.0); HGB - HEMOGLOBIN 10.7 g/dL (12.0-16.0); LYMPHOCYTES # (AUTO) 2.6 10^3/uL (1.5-3.5); LYMPHOCYTES % (AUTO) 25.3 %; MEAN CORPUSCULAR HEMOGLOBIN 29.3 pg (27.0-31.0); MEAN CORPUSCULAR HGB CONC 31.9 g/dL (32.0-36.0); MEAN CORPUSCULAR VOLUME 91.8 fL (81.0-99.0); MEAN PLATELET VOLUME 12.1 fL (7.9-10.8); MONOCYTES # (AUTO) 0.9 10^3/uL (0.0-1.0); MONOCYTES % (AUTO) 8.8 %; NEUTROPHILS # (AUTO) 6.4 10^3/uL (1.5-6.6); NEUTROPHILS % (AUTO) 63.4 %; PLT - PLATELET COUNT 210 10^3/uL (130-450); RED BLOOD COUNT 3.65 10^6/uL (4.20-5.40); WHITE BLOOD COUNT 10.1 x10^3/uL (4.8-10.8)
[2023-12-23 05:50] LABS: CALCIUM 8.6 mg/dL (8.5-10.3); CREATININE 0.7 mg/dL (0.6-1.3); POTASSIUM 4.7 mmol/L (3.5-4.5)
--- NOTE | 2023-12-23 08:42 | Discharge Plan ---
Discharge Plan Problem Reviewed?: Yes Disposition: Home, Self Care Condition: Stable Diet: Regular Activity Restrictions: Activity as Tolerated No Smoking: If you smoke, Please STOP! Call for help.
[2023-12-23] MEDS: NEUTRA-PHOS 250 MG TABLET PO ONE (08:44)
--- NOTE | 2023-12-23 08:44 | DISCHARGE SUMMARY ---
Discharge Summary Admit Date: 12/20/23 Discharge Date: 12/23/23 Discharging Provider: Gamaliel López Code Status: Attempt Resuscitation Condition at Discharge: Good Discharge Disposition: 01 Home, Self Care - HPI History of Present Illness: Patient is a 28-year-old female with no known past medical history who presented to the ED due to several days of nausea and vomiting. Upon presentation to the ED she was noted to have severe electrolyte derangements including a sodium of 118, potassium 2.2, chloride 60, and HCO3 greater than 45. She was given IV fluids. A CT abdomen/pelvis was performed which was unremarkable. Patient was admitted to the ICU for electrolyte replacement. During my evaluation, she denied any acute symptoms. She did have some urinary retention and a Kim catheter was placed. She states that after receiving fluids she felt significantly better. - HOSPITAL COURSE Hospital Course: Patient is a 28-year-old female who presented to the ED due to complaints of nausea and vomiting. Upon presentation she was noted to have hyponatremia with a sodium of 118 and hypokalemia with potassium 2.2 Amongst other electrolyte derangements. Patient was admitted to the ICU and started on IV fluids and potassium supplementation. She was asymptomatic throughout her hospitalization and exhibited no nausea or vomiting. She was able to eat a regular diet without issues. Patient did have acute urinary retention and a Kim catheter was placed. As her electrolyte abnormalities improved the Kim catheter was pulled and she was able to urinate on her own. Patient was subsequently discharged home in stable condition. - ALLERGIES Allergies/Adverse Reactions: Allergies Allergy/AdvReac Type Severity Reaction Status Date / Time No Known Drug Allergies Allergy Verified 12/20/23 09:07 - MEDICATIONS Home Medications: Ambulatory Orders Medication Instructions Recorded Confirmed No Known Home Medications 01/30/22 12/20/23 - PHYSICAL EXAM AT DISCHARGE General Appearance: positive: No acute distress, Alert Respiratory: positive: Chest non-tender, No respiratory distress, Breath sounds nml Cardiovascular: positive: Regular rate & rhythm, No murmur, No gallop Extremities: positive: Non-tender, No pedal edema Neurologic/Psychiatric: positive: Oriented x3, CN's nml (2-12) - LABS Result Diagrams: 12/23/23 05:09 12/23/23 05:09 - SEPSIS Current Stage of Sepsis: Ruled out - FOLLOW UP Follow Up: Follow-up with PCP in 3 to 5 days.Kindly recheck BMP at next outpatient visit. - TIME SPENT Time Spent in Discharge (Minutes): 30
[2023-12-23 09:34] VITALS: BP 145/87; O2SAT 97
== END 2023-12-23 09:40 | disposition home or self-care (01) | DRG 641 ==
LOC: ED 08:56 → ICU 14:21 → ED 14:43
PROVIDERS: ADMIT Family Medicine; ATTEND Family Medicine
DX: E87.1 Hypo-osmolality and hyponatremia (principal); E87.6 Hypokalemia; E87.8 Other disorders of electrolyte and fluid balance, not elsewhere classified; E86.0 Dehydration; R33.9 Retention of urine, unspecified
CPT/HCPCS: 36415; 51702; 74177; 80048; 80053; 81003; 82009; 82310; 82330; 82803; 83036; 83690; 83735; 84100; 84132; 84295; 84443; 85025; 87150; 96360; 99285; A9270; J1650; J7120; Q9967; 81001; 87086